=== PATIENT | male | born 1990 | race Hispanic/Latino ===

== ENCOUNTER 2017-09-17 22:53 | Emergency (ER) | payer SELFPAY ==
--- NOTE | 2017-09-18 08:00 | RAD ---
TWO VIEWS CHEST: Date: 09-18-17 Provided Clinical History: Cough. FINDINGS: Comparison is made with the study dated 12-13-15. Cardiac and mediastinal silhouette is within normal limits. Lungs appear clear. No pleural fluid or pneumothorax apparent. IMPRESSION: No evidence for acute cardiopulmonary process. POS: H
== END 2017-09-18 02:51 | disposition home or self-care (01) ==
LOC: ERS 22:53
DX: J20.9 Acute bronchitis, unspecified (principal)
CPT/HCPCS: 71020